=== PATIENT | female | born 1980 | race Caucasian/White ===

== ENCOUNTER 2016-04-20 11:57 | Day surgery (SDC) | payer OTHER ==
[2016-04-20] VITALS (8 sets, daily range): BP systolic 103–110; BP diastolic 46–76; PULSE 84–88; RESP 16–17; Ht 162.6 cm; Wt 68.6 kg
[~2016-04-20] VITALS: Ht 162.6 cm; Wt 68.6 kg
[~2016-04-20 11:57] MED LIST: CLINDAMYCIN 900 MG/50 ML D5W IVPB IVPB ONE
[2016-04-20] MEDS ORDERED: CEFAZOLIN 2 GM/50 ML (PMX) 50 ML IVPB ONE (13:00)
[2016-04-20] MEDS ORDERED: LACTATED RINGER'S 1,000 ML IV* ONE (13:00)
[2016-04-20] MEDS ORDERED: VITAMIN B6 (13:13)
[2016-04-20] MEDS ORDERED: VITAMIN B12 (13:13)
[2016-04-20] MEDS ORDERED: DIPHENHYDRAMINE 50 MG INJ IV PRN (16:30)
[2016-04-20] MEDS ORDERED: OXYCODONE/ACETAMINOPHEN (5/325) TAB PO PRN (16:30)
[2016-04-20] MEDS ORDERED: HYDROmorphONE (0.2 MG/ML) 10ML SYG IV PRN ×3 (16:30)
[2016-04-20] MEDS ORDERED: MEPERIDINE 25 MG INJ IV PRN (16:30)
[2016-04-20] MEDS ORDERED: PROCHLORPERAZINE 10 MG INJ IV PRN (16:30)
[2016-04-20] MEDS ORDERED: ONDANSETRON 4 MG INJ IV PRN (16:30)
[2016-04-20] MEDS ORDERED: FENTAnyl 50 MCG/ML VIAL IV PRN (16:30)
[2016-04-20] MEDS ORDERED: PROPOFOL 100 ML ONE (16:41)
[2016-04-20] MEDS ORDERED: LIDOCAINE 2% (SDV) 5 ML INJ ONE (16:41)
[2016-04-20] MEDS ORDERED: MIDAZOLAM 1 MG/ML 2 ML INJ ONE (16:41)
[2016-04-20] MEDS ORDERED: FENTAnyl 50 MCG/ML VIAL ONE (16:41)
[2016-04-20] MEDS ORDERED: PHENYLephrine (100 MCG/ML) 5ML SYG ONE (16:49)
[2016-04-20] MEDS ORDERED: BUPIVACAINE 0.25% (MPF) 10 ML 10 ML VIAL ONE (17:01)
[2016-04-20] MEDS ORDERED: POLYMYXIN/BACITRACIN 1L IRRIG ONE (17:01)
[2016-04-20] MEDS ORDERED: DEXAMETHASONE 4 MG/ML 1 ML INJ ONE (17:08)
[2016-04-20] MEDS ORDERED: FAMOTIDINE 20 MG INJ ONE (17:08)
[2016-04-20] MEDS ORDERED: ONDANSETRON 4 MG INJ ONE (17:08)
[2016-04-20] MEDS ORDERED: METOCLOPRAMIDE 10 MG INJ ONE (17:08)
--- NOTE | 2016-04-20 17:25 | HPN ---
Date/Time of Note Date/Time of Note DATE: 04/20/16 TIME: 17:25 Interval H&P Admission Note Pt. seen H&P reviewed: No system changes RAYSA WORLEY MD Apr 20, 2016 17:25
[2016-04-20] MEDS ORDERED: morphine 2 MG INJ IV PRN (18:00)
[2016-04-20] MEDS ORDERED: HYDROCODONE/APAP (5/325) TAB PO PRN (18:00)
--- NOTE | 2016-06-12 11:55 | OPR ---
DATE OF OPERATION: 04/20/2016 PREOPERATIVE DIAGNOSIS: Left carpal tunnel syndrome. POSTOPERATIVE DIAGNOSIS: Left carpal tunnel syndrome. SURGEON: Raysa Pierce MD ANESTHESIA: General. OPERATION PERFORMED: 1. Open carpal tunnel release, left hand. 2. Neurolysis of the carpal tunnel and median nerve. 3. Neurolysis of the motor branch of the median nerve. TOURNIQUET TIME: Less than 20 minutes, 225. INDICATIONS: Lalita is a patient well-known to us who underwent a previous right open carpal tunnel r elease several months ago successfully for the condition of bilateral carpal tunnel syndrome. Right was worse than the left, but the left was also severe in nature, and after the risks and benefits o f surgery explained to the patient including pain, bleeding, infection, scar, damage to neurovascula r structures, failure for the first surgery to work, need for future surgery, the patient elected to proceed. PROCEDURE IN DETAIL: The patient was marked and identified in preoperative holding and brought to [facility] operating room and placed supine on the regular operating room table with an arm board and placed under general anesthesia. Her bony prominences were padded and sequential compressive devices were placed on bilateral lower extremities. Preoperative antibiotics were dosed and given to her at [facility] and an unsterile tourniquet was applied to the left upper extremity. Her left arm was prepped an d draped in the usual sterile fashion and tourniquet was inflated and a time out was performed. An incision was made over the radial border of the fourth digit in the palmar crease with the incisi on taken down to the transverse carpal ligament. Ligament was identified and this was incised from proximal to distal, until it was incised through the proximal palmar fascia and then distally until the fat of the mid hand was identified. At this time, using a [place] tool, the tendons and the media n nerve underwent a tenolysis and neurolysis for extensive amount of adhesions until these structure s were freed and using small scissors, the motor branch of the median nerve was identified and the s car surrounding it was freed up. The tourniquet was released. Hemostasis was achieved and closure was performed with a 2-0 Vicryl fo r deep layer. Final suture, Prolene in a running fashion. Sterile dressing was applied as well as a small splint and this terminated the procedure. The patient was extubated in the operating room i n good condition. Dictated By: RAYSA SMITH/NTS Conf#: [id number] DID#: [id number]
== END 2016-04-20 18:18 | disposition home or self-care (01) ==
LOC: SDS 11:57
PROVIDERS: ATTEND Orthopaedic Surgery
DX: G56.02 Carpal tunnel syndrome, left upper limb (principal)
CPT/HCPCS: 64721; 64727; 84703; J1100; J2250; J2370; J2405; J2765; J3010; Z7512; Z7610

== ENCOUNTER 2017-11-27 07:09 | Day surgery (SDC) | END 2017-11-27 12:02 | disposition home or self-care (01) ==